=== PATIENT | female | born 1945 | race Caucasian/White ===

== ENCOUNTER 2017-03-10 17:00 | Outpatient (CLI) | payer MEDICARE | END 2017-03-10 17:01 | disposition home or self-care (01) | LOC: BICRAD 17:00 | PROVIDERS: ATTEND Internal Medicine | DX: J32.9 Chronic sinusitis, unspecified (principal); R05 Cough; J18.9 Pneumonia, unspecified organism | CPT/HCPCS: 70220; 71046 ==

== ENCOUNTER 2017-04-15 16:19 | Outpatient (CLI) | payer MEDICARE | END 2017-04-15 16:20 | disposition home or self-care (01) | LOC: BICRAD 16:19 | PROVIDERS: ATTEND Internal Medicine | DX: R05 Cough (principal) | CPT/HCPCS: 71046 ==

== ENCOUNTER 2018-02-14 14:16 | Emergency (ER) | payer MEDICARE ==
[2018-02-14 15:16] LABS: Hemoglobin 9.9 g/dL (12.0-16.0); Mean Corpuscular HGB CONC 32.9 g/dL (32.0-36.0); Mean Corpuscular Hemoglobin 27.3 pg (27.0-31.0); Mean Platelet Volume 7.7 fL (7.4-10.4); Platelet Count 143 thou/uL (130-400); RBC Distribution Width 17.6 % (11.5-14.5); Red Blood Cell (RBC) Count 3.61 mill/uL (4.20-5.40); White Blood Cell (WBC) Count 1.6 thou/uL (4.8-10.8)
[2018-02-14] MEDS ORDERED: cefTRIAXone\\ROCEPHIN 2 GM VIAL ONE (15:24)
[2018-02-14 15:25] LABS: Bilirubin Negative (Negative); Blood, Urine Negative (Negative); Clarity CLEAR (Clear); Glucose, Urine (Dipstick) Negative (Negative); Leukocyte Trace (Negative); Nitrite Negative (Negative); Protein, Urine (Dipstick) Negative (Neg-Trace); Specific Gravity, Urine 1.016 (1.002-1.036); pH, Urine 6.5 (5.0-9.0)
[2018-02-14 15:34] LABS: Bacteria/HPF None Seen HPF (None Seen); Hyaline Casts/LPF 0-3 HYALINE CAST LPF (0-3 Hyaline); Pathc Cast-AUWi Flag 0.14 (0-2.49); RBC/HPF 0-3 HPF (0-3); Squamous Epithelial 0-3 HPF (0-3); WBC/HPF None Seen HPF (0-3)
[2018-02-14 15:34] LABS: #Eosinphils 0.1 thou/uL (0.0-0.7); #Lymphocytes 0.5 thou/uL (1.20-3.40); #Monocytes 0.2 thou/uL (0.11-0.59); #Neutrophils 0.9 thou/uL (1.40-6.50); %Basophils 0.4 % (0.0-1.0); %Eosinophils 3.3 % (0.0-10.0); %Lymphocytes 30.5 % (21.0-51.0); %Monocytes 9.8 % (0.0-10.0); Anisocytosis SLIGHT = 6-15 cells (100X) (0-5/hpf); Elliptocytes SLIGHT = 2-5 cells (100X) (0-1/hpf); MDiff Complete? YES; Microcytosis SLIGHT = 6-15 cells (100X) (0-5/hpf); PLT Morphology Comment Appears Adequate
[2018-02-14 15:35] LABS: ALT (SGPT) 18 U/L (8-55); AST (SGOT) 35 U/L (5-34); Albumin 3.7 g/dL (3.4-4.8); Alkaline Phosphatase 106 U/L (40-150); Anion Gap 14 mmol/L (10-20); BUN (Urea Nitrogen) 12 mg/dL (9.8-20.1); Bilirubin, Total 0.8 mg/dL (0.2-1.2); CK (CPK) 24 U/L (29-168); Calc. Creatinine Clearance 0 mL/min (70-130); Calcium 8.9 mg/dL (7.8-10.44); Carbon Dioxide 20 mmol/L (23-31); Chloride 100 mmol/L (98-107); Estimated GFR-MDRD 73; Globulin 2.6 g/dL (2.4-3.5); Glucose 110 mg/dL (83-110); Potassium 4.2 mmol/L (3.5-5.1); Protein, Total 6.3 g/dL (6.0-8.3); Sodium 130 mmol/L (136-145)
--- NOTE | 2018-02-14 16:13 | RAD ---
PORTABLE CHEST ONE VIEW: 02/14/18 at 3:04 p.m. HISTORY: Neutropenic fever. FINDINGS: The heart size is normal. The lungs are well expanded without focal areas of consolidation, pneumotho rax or pleural effusions. There are postop changes in the left axilla. IMPRESSION: No radiographic evidence of acute cardiopulmonary process. POS: [facility]
--- NOTE | 2018-02-20 15:19 | EKG ---
Test Reason : Blood Pressure : / mmHG Vent. Rate : 112 BPM Atrial Rate : 112 BPM P-R Int : 154 ms QRS Dur : 072 ms QT Int : 320 ms P-R-T Axes : 049 025 116 degrees QTc Int : 436 ms Sinus tachycardia Possible Left atrial enlargement T wave abnormality, consider anterolateral ischemia Abnormal ECG Confirmed by EMERALD NGUYEN M.D. ([id number]), research editor JEFF MAY ([id number] on 02/20/2018 3:18:51 PM Referred By: Confirmed By:EMERALD NGUYEN M.D.
== END 2018-02-14 17:16 | disposition home or self-care (01) ==
LOC: ERS 14:16
DX: R50.9 Fever, unspecified (principal); D72.819 Decreased white blood cell count, unspecified; I10 Essential (primary) hypertension
CPT/HCPCS: 36415; 71045; 80053; 81003; 81015; 82550; 83605; 84484; 85025; 85060; 87040; 87086; 93005; 96365; 96367; J0696; J3370

== ENCOUNTER 2018-02-19 10:38 | Outpatient (CLI) | payer MEDICARE ==
--- NOTE | 2018-02-19 14:16 | PET ---
PET WITH CT SKULL TO MID THIGH: CLINICAL HISTORY: Lymphoma in a 72-year-old female. COMPARISON: Reference made to a chest, abdomen, and pelvis CT, dated 10/30/2016. RADIOPHARMACEUTICAL: Fluorine 18 FDG 12 millicuries IV with 10 mL 0.95 sodium chloride. RADIOTRACER DISTRIBUTION: There is a homogeneous radiotracer distribution. FINDINGS: There are several lymph nodes of the right axilla, as well as the superior right chest wall, located deep to the pectoralis musculature. These lymph nodes are not pathologically enlarged by size criter ia, although do reveal evidence of hypermetabolic activity with SUV measuring up to 2.5. There are f our discrete lymph nodes of this region with increased metabolic activity. There is a small hypodensity at the inferior aspect of the right hepatic lobe, which dose not reveal increased metabolic activity. There is marked enlargement of the spleen, which reveals increased met abolic activity, diffusely, with SUV maximum ranging between 4 and 5, suggestive of diffuse lymphomat ous involvement. There is no evidence of pulmonary mass or pleural effusion. There is multifocal soft tissue nodulari ty about the splenic hilum, which reveals a slight increase in metabolic activity, although is not fr ankly hypermetabolic, with an SUV of approximately 2. Hypermetabolic adenopathy of the periaortic re gion of the abdomen is present, with an SUV of 3, within a 1.2 cm lymph node. Focal increased metabo lic activity of the left pelvic sidewall is present within a small region of ill defined soft tissue nodularity, adjacent the left aspect of the sigmoid colon, which an SUV of approximately 3. This cou ld relate to a small hypermetabolic lymph node. IMPRESSION: 1. Hypermetabolic adenopathy is present, localizing to the anterior right superior chest wall, right axilla, and periaortic aspect of the abdominal retroperitoneum, as well as within the left hemipelvi s. In addition, there is indication of diffuse lymphomatous involvement of the enlarged spleen, with adjacent soft tissue nodularity, which demonstrates mild increased metabolic activity. 2. Deauville score of 4 for moderately higher uptake, relative to the hepatic parenchyma. POS: [facility]
== END 2018-02-19 10:39 | disposition home or self-care (01) ==
LOC: PET 10:38
PROVIDERS: ATTEND Internal Medicine Hematology & Oncology
DX: C85.90 Non-Hodgkin lymphoma, unspecified, unspecified site (principal); R59.0 Localized enlarged lymph nodes
CPT/HCPCS: 78815; A9552

== ENCOUNTER 2018-02-20 08:37 | Day surgery (SDC) | payer MEDICARE ==
[2018-02-19 13:21] VITALS: BMI 26.8
[~2018-02-20 08:37] MED LIST: Prevnar 13-Val Conj/PF 0.5 ML SYRINGE IM ONE
[2018-02-20 09:01] LABS: PTT 35.3 SEC (22.9-36.1); Prothrombin Time 13.1 SEC (12.0-14.7)
[2018-02-20 11:00] VITALS: BP 140/62; TEMP 97.4
--- NOTE | 2018-02-20 14:43 | CT ---
CT GUIDED BONE MARROW ASPIRATION BIOPSY OF LEFT ILIAC BONE: Date: 02-20-18 History: Pancytopenia. Technique: After informed consent was obtained, patient was placed on the CT scan table in the prone position. L imited noncontrasted CT scan was obtained through the level of the iliac bones with grid localizer in place. An area overlying the left iliac bone was marked and the area was meticulously prepped and dr aped in the usual sterile fashion. Skin and subcutaneous tissues were infiltrated with buffered 1% Lidocaine for local anesthesia. Small skin incision was made. A 10 gauge lung biopsy needle was advanced to the level of the left iliac bubba ne cortex. Three axial noncontrast CT images were obtained confirming placement of the needle. The needle was advanced just through the cortex and approximately 8 ml of bone marrow aspirate was ob tained. Utilizing co-axial technique, a 12 gauge lung biopsy needle was placed and an approximately 1 .5 cm core bone biopsy specimen was obtained. Needle was removed. Hemostatis was achieved with direct pressure. The patient tolerated the procedure well and without immediate complication. Patient was transported to radiology nurses holding area for further monitoring prior to discharge. IMPRESSION: Technically successful CT guided percutaneous bone marrow aspiration and biopsy of left iliac bone. POS: [facility]
== END 2018-02-20 11:35 | disposition home or self-care (01) ==
LOC: CT 08:37
PROVIDERS: ATTEND Internal Medicine Hematology & Oncology
PROC: 07DR3ZX Extraction of Iliac Bone Marrow, Percutaneous Approach, Diagnostic (ICD-10-PCS; principal; 2018-02-20)
DX: D61.818 Other pancytopenia (principal); Z91.040 Latex allergy status; Z91.09 Other allergy status, other than to drugs and biological substances; Z79.2 Long term (current) use of antibiotics; Z79.899 Other long term (current) drug therapy
CPT/HCPCS: 20225; 36415; 77012; 85097; 85610; 85730; 88184; 88237; 88264; 88280; 88305; 88311; 88313; 88341; 88342

== ENCOUNTER 2018-03-01 12:33 | Emergency (ER) | payer MEDICARE ==
[2018-03-01 13:00] LABS: Bilirubin Negative (Negative); Blood, Urine Negative (Negative); Clarity Clear (Clear); Glucose, Urine (Dipstick) Negative (Negative); Leukocyte Negative (Negative); Nitrite Negative (Negative); Protein, Urine (Dipstick) Negative (Neg-Trace); Specific Gravity, Urine 1.015 (1.005-1.030); Urobilinogen 0.2 mg/dL (0.2-1.0); pH, Urine 5.5 (5.0-9.0)
[2018-03-01 13:58] LABS: Anisocytosis SLIGHT = 6-15 cells (100X) (0-5/hpf); Band 8 % (5-11); Elliptocytes SLIGHT = 2-5 cells (100X) (0-1/hpf); Eosinophils 6 % (0-10); Hemoglobin 9.2 g/dL (12.0-16.0); Hypochromia SLIGHT = 6-15 cells (100X) (0-5/hpf); Lymphocytes 32 % (21-51); MDiff Complete? YES; Mean Corpuscular HGB CONC 32.4 g/dL (32.0-36.0); Mean Corpuscular Hemoglobin 26.1 pg (27.0-31.0); Mean Corpuscular Volume 80.6 fL (78.0-98.0); Mean Platelet Volume 5.9 fL (7.4-10.4); Monocytes 9 % (0-10); Neutrophil 45 % (42-75); PLT Morphology Comment Appears Adequate; Platelet Count 136 thou/uL (130-400); RBC Distribution Width 15.9 % (11.5-14.5); Red Blood Cell (RBC) Count 3.51 mill/uL (4.20-5.40); Tear Drops SLIGHT = 2-5 cells (100X) (0-1/hpf); White Blood Cell (WBC) Count 1.5 thou/uL (4.8-10.8)
[2018-03-01 14:12] LABS: ALT (SGPT) 18 U/L (8-55); AST (SGOT) 35 U/L (5-34); Albumin 3.4 g/dL (3.4-4.8); Alkaline Phosphatase 77 U/L (40-150); Anion Gap 16 mmol/L (10-20); BUN (Urea Nitrogen) 11 mg/dL (9.8-20.1); Bilirubin, Total 0.7 mg/dL (0.2-1.2); Calc. Creatinine Clearance 0 mL/min (70-130); Calcium 8.5 mg/dL (7.8-10.44); Carbon Dioxide 17 mmol/L (23-31); Chloride 101 mmol/L (98-107); Estimated GFR-MDRD 62; Globulin 2.5 g/dL (2.4-3.5); Glucose 102 mg/dL (83-110); Potassium 3.9 mmol/L (3.5-5.1); Protein, Total 5.9 g/dL (6.0-8.3); Sodium 130 mmol/L (136-145)
--- NOTE | 2018-03-01 14:38 | RAD ---
CHEST 2 VIEWS: Date: 03/01/18 HISTORY: Fever and cough. COMPARISON: Chest radiograph dated 02/14/18. FINDINGS: Lungs are clear. No pneumothorax or effusion. Cardiac silhouette and mediastinal contours within norm al limits. IMPRESSION: No acute intrathoracic abnormality. POS: [facility]
== END 2018-03-01 15:56 | disposition home or self-care (01) ==
LOC: SCSER 12:33
DX: D70.9 Neutropenia, unspecified (principal); R50.81 Fever presenting with conditions classified elsewhere; I10 Essential (primary) hypertension
CPT/HCPCS: 36415; 71046; 80053; 81003; 83605; 85025; 87040; 87086

== ENCOUNTER 2018-03-27 10:56 | Day surgery (SDC) | payer MEDICARE ==
[2018-03-27] MEDS ORDERED: diphenhydrAMINE 25 MG CAP PO SCH (11:15)
[2018-03-27] MEDS ORDERED: Acetaminophen 500 MG TAB PO SCH (11:15)
[2018-03-27 15:36] VITALS: BP 126/58; TEMP 98.5
== END 2018-03-27 15:44 | disposition home or self-care (01) ==
LOC: ONC/OP 10:56
PROVIDERS: ATTEND Internal Medicine Hematology & Oncology
PROC: 30233N1 Transfusion of Nonautologous Red Blood Cells into Peripheral Vein, Percutaneous Approach (ICD-10-PCS; principal; 2018-03-27)
DX: D64.9 Anemia, unspecified (principal); D69.6 Thrombocytopenia, unspecified; Z79.899 Other long term (current) drug therapy; Z91.040 Latex allergy status; Z88.8 Allergy status to other drugs, medicaments and biological substances
CPT/HCPCS: 36430; 86850; 86900; 86901; P9016; Q0163

== ENCOUNTER → 2018-04-27 | Day surgery (SDC) | payer MEDICARE ==
[~2018-04-27] MED LIST changes: +Acetaminophen 500 MG TAB PO SCH; -Prevnar 13-Val Conj/PF 0.5 ML SYRINGE IM ONE; +Sodium Chloride 0.9% 20 ML ONE; +diphenhydrAMINE 25 MG CAP PO SCH
== END ==
LOC: ONC/OP 12:53
PROVIDERS: ATTEND Internal Medicine Hematology & Oncology
PROC: 30233N1 Transfusion of Nonautologous Red Blood Cells into Peripheral Vein, Percutaneous Approach (ICD-10-PCS; principal; 2018-04-27)
DX: D64.9 Anemia, unspecified (principal); D69.6 Thrombocytopenia, unspecified; Z88.8 Allergy status to other drugs, medicaments and biological substances; Z91.040 Latex allergy status
CPT/HCPCS: 86850; 86870; 86900; 86901; Q0163

== ENCOUNTER 2018-04-29 12:40 | Inpatient (IN) | payer MEDICARE ==
[2018-04-29] MEDS ORDERED: Sodium Chloride 0.9% 0 ML ONE (12:48)
[2018-04-29] MEDS ORDERED: Acetaminophen 500 MG TAB PO SCH ×2 (13:00→16:45)
[2018-04-29] MEDS ORDERED: diphenhydrAMINE 25 MG CAP PO SCH (13:00)
[2018-04-29 16:10] LABS: Hemoglobin 6.7 g/dL (12.0-16.0)
[2018-04-29] MEDS ORDERED: diphenhydrAMINE 50 MG/ML VIAL ONE (16:28)
[2018-04-29] MEDS ORDERED: diphenhydrAMINE 50 MG/ML VIAL IVP SCH (16:45)
[2018-04-29] MEDS: methylPREDNISolone Sod Succ/PF 125 MG/2 ML VIAL IVP SCH (16:57)
[2018-04-29] MEDS ORDERED: Sodium Chloride 0.9% 20 ML ONE (16:59)
[2018-04-29] MEDS ORDERED: Guaifenesin DM 100-10/5 ML UDCUP PO PRN (19:28)
[2018-04-29] MEDS ORDERED: Senokot S 8.6-50 MG TAB PO PRN (19:28)
[2018-04-29] MEDS ORDERED: Acetaminophen 650 MG Suppository PR PRN (19:28)
[2018-04-29] MEDS ORDERED: Ondansetron PF 4 MG/2 ML Vial IVP PRN (19:28)
[2018-04-29] MEDS ORDERED: Promethazine 25 MG TAB PO PRN (19:35)
[2018-04-29] MEDS ORDERED: methylPREDNISolone Sod Succ/PF 125 MG/2 ML VIAL IVP SCH (19:45)
[2018-04-29] MEDS ORDERED: Lorazepam 0.5 MG TAB PO SCH (21:00)
[2018-04-29] MEDS ORDERED: methylPREDNISolone Sod Succ 40 MG VIAL IM SCH (21:15)
[2018-04-29] MEDS ORDERED: methylPREDNISolone Sod Succ/PF 125 MG/2 ML VIAL IM SCH (21:15)
[2018-04-29] MEDS: Famotidine 20 MG TAB PO SCH (21:49)
[2018-04-29] MEDS: Melatonin 3 MG TAB PO PRN (21:49)
[2018-04-29 23:52] LABS: Bilirubin Negative (Negative); Blood, Urine Negative (Negative); Clarity CLEAR (Clear); Glucose, Urine (Dipstick) Negative (Negative); Leukocyte Negative (Negative); Nitrite Negative (Negative); Protein, Urine (Dipstick) Negative (Neg-Trace); pH, Urine 6.5 (5.0-9.0)
[2018-04-29 23:54] LABS: Specific Gravity, Urine 1.004 (1.002-1.036)
--- NOTE | 2018-04-30 01:56 | HP ---
PRIMARY CARE PHYSICIAN: Disha. PRIMARY ONCOLOGIST: Mirna Pyane MD REASON FOR ADMISSION: Dizziness, confusion, and transfusion reaction. HISTORY OF PRESENT ILLNESS: This is a 73-year-old white female with a history of non-Hodgkin's lymphoma, previously treated with chemotherapy, radiation and then a stem cell transplant, had been doing well with no evidence of recurrence until January. She started to feel bad. She started having chills, fevers, was seen in the emergency room, and no infection was found, so she was sent to Dr. Payne. Dr. Payne diagnosed her with a recurrence of non-Hodgkin lymphoma. The patient was started on chemotherapy and for the last 2 weeks, has had no more of the chills episodes or fevers with confusion. In the office, the patient was noted to have a hemoglobin of 6.7, so she was scheduled for a transfusion here today. The patient has lots of antibodies in her blood that makes it difficult to do transfusion, so what they did was the least dangerous transfusion they can do, even though they were not able to completely crossmatch. The patient was able to get 1 unit and then she started to have some of the transfusion reaction. She started shaking and feeling very bad and very tachycardic to 150s. Dr. Payne was going to give her some steroids, but then her symptoms resolved with a second dose of Benadryl. The patient was doing okay and then when she got up to leave the facility, she almost fell. She had to be caught by staff. No injuries. The patient was very confused at that time and so, Dr. Payne asked that we put patient on observation until the Benadryl gets out of her system. Repeat H and H after the transfusion did show a hemoglobin of 6.7. On speaking with Dr. Payne, there is a possibility of an autoimmune hemolysis as well, so we will go ahead and give the patient a dose of steroids. PAST MEDICAL HISTORY: 1. Hypertension. 2. Hypothyroidism. 3. Non-Hodgkin's lymphoma, now with recurrence. 4. Osteoporosis. PAST SURGICAL HISTORY: 1. Cholecystectomy. 2. Right hip pinning for fracture. 3. Left wrist surgery. SOCIAL HISTORY: The patient denies tobacco, alcohol, or illicit drug use. She lives at home with her daughter. She is a . FAMILY HISTORY: Father had heart disease. Mother had breast cancer. Brother with thyroid cancer. ALLERGIES: 1. LATEX. 2. POVIDONE-IODINE. 3. SOAPS. CURRENT MEDICATIONS: 1. 0.5 mg of Ativan twice a day, especially at bedtime. 2. Melatonin 3 to 6 mg at night. 3. Losartan 25 mg daily. 4. Synthroid 50 mcg daily. 5. Zoloft 100 mg daily. REVIEW OF SYSTEMS: CONSTITUTIONAL: See HPI. EYES: No double vision or blurred vision. ENT: She has had some runny nose. No sore throat. CARDIOVASCULAR: No chest pain. No palpitations or racing heart. PULMONARY: She has had some cough for the last few days productive of clear to yellow sputum. No shortness of breath or wheezing. GASTROINTESTINAL: She has had some nonspecific periumbilical abdominal pain, crampy on and off, sometimes with bowel movements, but oftentimes even when she is not having any bowel movements. Pain has been getting worse for at least a week. She has been taking anything for it. She has had significant nausea and vomiting associated with both her cancer and the treatments. She takes Zofran and maybe some Phenergan for that at home. She also has had some diarrhea that she took loperamide earlier in the week, none currently. GENITOURINARY: No dysuria or hematuria. MUSCULOSKELETAL: She has some chronic muscle aches in her back. No other significant symptoms. SKIN: No rashes or lesions. NEUROLOGIC: No numbness, tingling, or focal weakness. PHYSICAL EXAMINATION: VITAL SIGNS: Blood pressure 133/74, pulse 93, O2 saturation 99% on room air, and temperature 98.5. GENERAL: This is a well-developed obese white female, in no acute distress. HEENT: Pupils are equal, round, and reactive to light. Oropharynx clear without lesions, erythema, or exudate. NECK: Supple. No lymphadenopathy. No thyroid nodules or enlargement. No JVD. HEART: Regular rate and rhythm. 3/6 loud holosystolic murmur. No rubs, or gallops. LUNGS: Clear to auscultation bilaterally. No wheezes, crackles, or rhonchi. ABDOMEN: Soft. Mild tenderness to palpation periumbilically. No guarding or rebound tenderness. No masses. No hepatosplenomegaly. Normoactive bowel sounds. EXTREMITIES: No clubbing, cyanosis, or edema. SKIN: No rashes or lesions noted. NEUROLOGIC: She has intact strength and sensation in all extremities. No facial droop. PSYCHIATRIC: The patient is alert and oriented to person, place, and time. She is a little bit confused about what has been happening recently. Has a hard time answering some questions and take some time on them. Her daughter is present in the room and said that this is much better than she was earlier in the day after she had got her second dose of Benadryl. LABORATORY DATA: H and H were 6.7 and 20.4. No other lab available. ASSESSMENT: 1. Shakiness and confusion, unsteadiness on feet. This is most likely secondary to two doses of Benadryl she was given to treat transfusion reaction, may be related to recurrent symptoms of her cancer since she did have fever and chills previously with her cancer before her treatments. We will put the patient in observation and watch her overnight and see if all these symptoms continue to clear if Benadryl gets out of her system. 2. Transfusion reaction with persistent anemia after 1 unit transfusion. Concern for possibility of hemolysis. We will give a dose of Solu-Medrol 125 mg IV x1 right now. I will recheck a CBC in the morning along with complete metabolic panel. If blood drops further in the morning, then it will be concerning for a possibility of a continued hemolysis and may need to transfuse further. I have discussed this plan with Dr. Payne and she will also see the patient in the morning. 3. Hypertension. Resume patient's home blood pressure medications. 4. Hypothyroidism. Resume patient's Synthroid. 5. Anxiety/depression. Resume patient's Zoloft. 6. Gastrointestinal prophylaxis. Put the patient on Pepcid twice a day. 7. Stomach pain. We will get a CMP in the morning and the patient will either get her PET scan tomorrow or CT if she is unable to make it to the PET scan. 8. Code status. I did discuss with the patient, she was not quite certain but for now, wants to be a full code. Should she be incapacitated, her daughter present in the room will be her medical decision maker, her name is Maricruz Hubbard. Job ID: [id number] [facility]
[2018-04-30 02:22] VITALS: BMI 24.7
[2018-04-30] MEDS: methylPREDNISolone Sod Succ/PF 125 MG/2 ML VIAL IVP SCH (03:17)
[2018-04-30 05:04] LABS: ALT (SGPT) 11 U/L (8-55); AST (SGOT) 34 U/L (5-34); Albumin 2.5 g/dL (3.4-4.8); Alkaline Phosphatase 89 U/L (40-150); Anion Gap 11 mmol/L (10-20); BUN (Urea Nitrogen) 14 mg/dL (9.8-20.1); Bilirubin, Total 1.3 mg/dL (0.2-1.2); Calc. Creatinine Clearance 89 mL/min (70-130); Calcium 8.2 mg/dL (7.8-10.44); Carbon Dioxide 27 mmol/L (23-31); Chloride 101 mmol/L (98-107); Estimated GFR-MDRD Greater than 90; Glucose 130 mg/dL (83-110); Potassium 3.4 mmol/L (3.5-5.1); Protein, Total 4.5 g/dL (6.0-8.3); Sodium 136 mmol/L (136-145)
[2018-04-30 05:11] LABS: Band 4 % (5-11); Eosinophils 3 % (0-10); Hemoglobin 6.3 g/dL (12.0-16.0); Lymphocytes 21 % (21-51); MDiff Complete? YES; Mean Corpuscular Hemoglobin 29.8 pg (27.0-31.0); Mean Corpuscular Volume 90.3 fL (78.0-98.0); Mean Platelet Volume 7.2 fL (7.4-10.4); Monocytes 7 % (0-10); Neutrophil 65 % (42-75); Platelet Count 113 thou/uL (130-400); Platelet Morphology Comment Appears Decreased; RBC Distribution Width 19.7 % (11.5-14.5); Red Blood Cell (RBC) Count 2.12 mill/uL (4.20-5.40); White Blood Cell (WBC) Count 1.4 thou/uL (4.8-10.8)
[2018-04-30] MEDS: Levothyroxine Sodium 50 MCG TAB PO SCH (07:03)
--- NOTE | 2018-04-30 08:02 | PDOC.PN ---
- Subjective Encounter Start Date: 04/30/18 Encounter Start Time: 10:40 Subjective: Patient with persistent diarrhea just like at home. Dizziness resolved. -: Still a little confused on and off but not like yesterday. Just got CT -: scan. - Objective Resuscitation Status - Order Detail: 04/29/18 19:28 Resuscitation Status Routine Resuscitation Status: FULL: Full Resuscitation Discussed with: Patient MAR Reviewed: Yes Vital Signs & Weight: Vital Signs (12 hours) Temp Pulse Resp BP BP Pulse Ox 04/30/18 04:00 98.2 F 100 16 114/54 L 99 04/30/18 00:30 98.2 F 100 16 108/53 L 96 04/30/18 00:05 98.3 F 82 16 108/62 97 Weight Admit Weight 153 lb 9.607 oz Weight 153 lb 9.6 oz I&O: 04/29/18 04/30/18 05/01/18 06:59 06:59 06:59 Intake Total 1630 Output Total 150 Balance 1480 Result Diagrams: 04/30/18 04:28 04/30/18 04:28 Phys Exam - Physical Examination Constitutional: NAD HEENT: moist MMs Respiratory: no wheezing, no rales, no rhonchi Cardiovascular: RRR, no significant murmur Gastrointestinal: soft, positive bowel sounds diffuse moderate TTP Neurological: non-focal, moves all 4 limbs Psychiatric: normal affect, A&O x 3 Dx/Plan (1) Anemia Code(s): D64.9 - ANEMIA, UNSPECIFIED Status: Acute (2) Transfusion reaction Code(s): T80.92XA - UNSPECIFIED TRANSFUSION REACTION, INITIAL ENCOUNTER Status : Acute (3) Shakiness Code(s): R25.1 - TREMOR, UNSPECIFIED Status: Acute (4) Acute metabolic encephalopathy Code(s): G93.41 - METABOLIC ENCEPHALOPATHY Status: Acute (5) Hypertension Code(s): I10 - ESSENTIAL (PRIMARY) HYPERTENSION Status: Chronic (6) Hypothyroidism Code(s): E03.9 - HYPOTHYROIDISM, UNSPECIFIED Status: Chronic (7) Diarrhea Code(s): R19.7 - DIARRHEA, UNSPECIFIED Status: Acute Comment: likely due to chemotherapy, will check C. diff just in case, giving loperamide - Plan cont current plan of care Dr. Payne to decide on need for further transfusions and imaging -: Possible hospice * . - Discharge Day Encounter end time: 10:50
[2018-04-30] MEDS: Famotidine 20 MG TAB PO SCH ×2 (09:16→20:21)
[2018-04-30] MEDS: Losartan 25 MG TAB PO SCH (09:16)
[2018-04-30] MEDS ORDERED: Iopamidol 370 76% 100 ML VIAL ONE (09:48)
[2018-04-30] MEDS ORDERED: Lorazepam 0.5 MG TAB PO SCH ×3 (10:15→21:00)
[2018-04-30] MEDS: Loperamide HCl 2 MG CAP PO PRN ×2 (10:45→14:51)
--- NOTE | 2018-04-30 12:35 | CT ---
CT CHEST WITH CONTRAST CT ABDOMEN WITH CONTRAST CT PELVIS WITH CONTRAST: HISTORY: Restaging T-cell lymphoma. COMPARISON: PET CT of 02/19/2018. FINDINGS: Lungs are clear. No pneumothorax. No effusion. No suspicious pulmonary nodule. A right retropectoral lymph node, which is deemed SCTF on the prior head PET examination measures 6 m m in short axis, unchanged. A maxillary lymph node which was also deemed FDG avid on the prior PET C T examination measures 4 mm in short axis, unchanged. The spleen measures 12.6 cm in length, unchang ed. No new mediastinal, hilar, axillary, internal mammary, nor retropectoral or supraclavicular adenopath y is appreciated. Hepatic cysts are present, unchanged. There is extensive diverticular disease of the sigmoid colon with submucosal edema throughout the sig moid colon and descending colon with moderate stool burden suggesting colitis. This may be treatment related. There is also submucosal edema and thickening throughout the transverse and ascending colo n and cecum. There is presacral fluid. There is trace free fluid in the pelvis. No abnormal hepatic enhancing mass. There is reservoir effect of the extrahepatic and intrahepatic b iliary system, similar. The aortoiliac contour is similar. Anterior periaortic lymph node, which wa s previous deemed FDG avid, measures 7 mm in short axis, unchanged. No new retroperitoneal adenopath y. No suspicious osteolytic or osteoblastic lesions. IMPRESSION: 1. Size unchanged hypermetabolic lymph nodes and spleen from the comparison PET CT examination. 2. No new adenopathy. 3. Diffuse colonic submucosal edema and thickening suggesting pancolitis may be treatment related. POS: [facility]
--- NOTE | 2018-04-30 12:38 | CON ---
DATE OF CONSULTATION: REASON FOR CONSULT: T-cell lymphoma. HISTORY OF PRESENT ILLNESS: Ms. 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 She has progressive pancytopenia, lymphadenopathy, and splenomegaly. She has undergone two cycles of treatment with Romidepsin. She has had night sweats, fever, and chills since diagnosis in late January. The fever was felt to be tumor related. She had a blood transfusion yesterday. Shortly after transfusion, she began to have the shaking and chills. No fever. She did receive Benadryl with resolution of symptoms, but unfortunately, she became dizzy and sleepy, and was admitted overnight for observation. The patient's hemoglobin did not improve with blood transfusion in fact dropped up slightly to 6.3. Hemolysis workup is underway. She did have antibodies prior to transfusion. The patient complains of diarrhea this morning. She has had five loose stools. She has anxiety. She denies any chest pain or shortness of breath. No abdominal discomfort. No fever, chills, or night sweats. PAST MEDICAL HISTORY: 1. Relapsed T-cell lymphoma. 2. Tumor fever, night sweats, and chills. 3. Anxiety. 4. Esophageal reflex. 5. Hypothyroidism. 6. Insomnia. 7. Shingles. PAST SURGICAL HISTORY: 1. Cholecystectomy. 2. Right hip pinning. 3. Wrist surgery. ALLERGIES: TO LATEX, IODINE, AND SOAPS. CURRENT MEDICATIONS: 1. Levothyroxine 50 mcg daily. 2. Lorazepam b.i.d. 3. Losartan 25 mg daily. 4. Vitamin B daily. 5. Zoloft 100 mg daily. FAMILY HISTORY: Noncontributory. SOCIAL HISTORY: , has 3 children. Lives with a daughter. No alcohol, tobacco, or illicit drug use. REVIEW OF SYSTEMS: A 10-point review of systems is negative except for noted in the HPI. PHYSICAL EXAMINATION: VITAL SIGNS: Temperature is 97.3, pulse is 105, respiratory rate 18, BP is 132/63. She is 99% on room air. GENERAL: This is a chronically ill-appearing female, in no acute distress. HEENT: Normocephalic atraumatic. Pupils equal and reactive to light. NECK: Supple. CV: Regular rate and rhythm. She does have a 2/6 murmur. LUNGS: Clear to auscultation. ABDOMEN: Soft, nontender. Bowel sounds are positive. EXTREMITIES: No clubbing, cyanosis, or edema. SKIN: No rash. HEMATOLOGICAL: No petechiae or purpura. NEUROLOGICAL: Nonfocal. PSYCH: The patient is anxious and tearful. PERTINENT LABS AND X-RAYS: Current WBCs 1.4, hemoglobin 6.3, hematocrit 19.1, platelet count is 113,000. Sodium is 136, potassium 3.4, chloride is 101, CO2 is 27, BUN is 14, creatinine 0.62, calcium 8.2, bilirubin is 1.3, AST is 34, ALT is 11, alkaline phosphatase is 89. Serum total protein is 4.5, albumin 2.5, globulin 2. Urine is negative for bacteria. ASSESSMENT: 1. T-cell lymphoma. 2. Severe anemia with possible transfusion reaction versus hemolysis. 3. Diarrhea. 4. Anxiety. DISCUSSION: We will add Lomotil and Imodium for patient's diarrhea. She was due for a PET scan today, but will be re-staged instead with a CT scan. We will start IV fluids after the CT scan. She remains on steroids for hemolysis versus transfusion reaction and we will monitor her CBC closely. We briefly discussed palliative care and hospice should CT scan show poor response to treatment. Thank you for the consult. We will follow her closely. Job ID: [id number]
[2018-04-30 15:41] LABS: Hemoglobin 6.5 g/dL (12.0-16.0); Mean Corpuscular HGB CONC 33.4 g/dL (32.0-36.0); Mean Corpuscular Hemoglobin 30.3 pg (27.0-31.0); Mean Corpuscular Volume 90.9 fL (78.0-98.0); Mean Platelet Volume 7.6 fL (7.4-10.4); Platelet Count 139 thou/uL (130-400); Red Blood Cell (RBC) Count 2.14 mill/uL (4.20-5.40); White Blood Cell (WBC) Count 1.4 thou/uL (4.8-10.8)
[2018-04-30 15:52] LABS: Bilirubin, Total 1.2 mg/dL (0.2-1.2)
[2018-04-30 16:05] LABS: Anisocytosis MODERATE=16-30 cells (100X) (0-5/hpf); Band 4 % (5-11); Eosinophils 2 % (0-10); Lymphocytes 35 % (21-51); MDiff Complete? YES; Monocytes 5 % (0-10); Neutrophil 52 % (42-75); Nucleated RBC 1 % (0); Ovalocytes SLIGHT = 2-5 cells (100X) (0-1/hpf); Platelet Morphology Comment Appears Adequate; Polychromasia MODERATE = 3-4 cells (100X) (0-2/hpf); Reactive Lymphocytes 2 % (0-10); Tear Drops SLIGHT = 2-5 cells (100X) (0-1/hpf)
[2018-04-30] MEDS: Melatonin 3 MG TAB PO PRN (18:28)
[2018-04-30] MEDS: Diphenoxylate HCl/Atropine Tablet PO PRN (18:28)
[2018-05-01] MEDS: Levothyroxine Sodium 50 MCG TAB PO SCH (07:18)
[2018-05-01] MEDS ORDERED: diphenhydrAMINE 50 MG/ML VIAL IVP SCH (08:00)
[2018-05-01] MEDS ORDERED: Dexamethasone 10 MG/ML VIAL SLOW IVP SCH (08:00)
[2018-05-01] MEDS ORDERED: Acetaminophen 500 MG TAB PO SCH (08:00)
[2018-05-01] MEDS: Losartan 25 MG TAB PO SCH (08:20)
[2018-05-01] MEDS: Famotidine 20 MG TAB PO SCH ×2 (08:20→20:30)
[2018-05-01] MEDS: Ondansetron ODT 4 MG TAB PO PRN (09:59)
--- NOTE | 2018-05-01 12:24 | PDOC.PN ---
- Subjective Encounter Start Date: 05/01/18 Encounter Start Time: 09:30 -: old records requested/rev Patient seen and examined. No new complaints. No overnight events - Objective Resuscitation Status - Order Detail: 04/30/18 17:29 Resuscitation Status Routine Resuscitation Status: DNAR: NO Resuscitation Discussed with: patient YOAN Reviewed: Yes Vital Signs & Weight: Vital Signs (12 hours) Temp Pulse Resp BP Pulse Ox 05/01/18 10:44 96 05/01/18 10:41 98.2 F 105 H 24 H 117/56 L Weight Admit Weight 153 lb 9.6 oz Weight 153 lb 9.6 oz I&O: 04/30/18 05/01/18 05/02/18 06:59 06:59 06:59 Intake Total 1630 960 0 Output Total 150 Balance 1480 960 0 Result Diagrams: 04/30/18 14:53 04/30/18 04:28 Phys Exam - Physical Examination Constitutional: NAD HEENT: PERRLA, sclera anicteric Neck: no JVD, supple Respiratory: no wheezing, no rales, no rhonchi Cardiovascular: RRR, no significant murmur, no rub Gastrointestinal: soft, non-tender, no distention, positive bowel sounds Musculoskeletal: no edema, pulses present Neurological: non-focal, normal sensation Lymphatic: no nodes Psychiatric: normal affect Skin: no rash, normal turgor Dx/Plan (1) Acute metabolic encephalopathy Code(s): G93.41 - METABOLIC ENCEPHALOPATHY Status: Acute (2) Anemia Code(s): D64.9 - ANEMIA, UNSPECIFIED Status: Acute (3) Diarrhea Code(s): R19.7 - DIARRHEA, UNSPECIFIED Status: Acute Comment: likely due to chemotherapy, will check C. diff just in case, giving loperamide (4) Pancolitis Code(s): K51.00 - ULCERATIVE (CHRONIC) PANCOLITIS WITHOUT COMPLICATIONS Status : Acute (5) T-cell lymphoma Code(s): C85.90 - NON-HODGKIN LYMPHOMA, UNSPECIFIED, UNSPECIFIED SITE Status: Acute (6) Transfusion reaction Code(s): T80.92XA - UNSPECIFIED TRANSFUSION REACTION, INITIAL ENCOUNTER Status : Acute (7) Hypertension Code(s): I10 - ESSENTIAL (PRIMARY) HYPERTENSION Status: Chronic (8) Hypothyroidism Code(s): E03.9 - HYPOTHYROIDISM, UNSPECIFIED Status: Chronic - Plan cont current plan of care * medication reviewed as below * symptomatic treatment * transfuse 1 unit PRBC * palliative care consulted * hospice eventually. Review of Systems - Review of Systems Other: not reliable as pt is confused today - Medications/Allergies Allergies/Adverse Reactions: Allergies Allergy/AdvReac Type Severity Reaction Status Date / Time latex AdvReac Mild Rash Verified 04/30/18 01:14 povidone-iodine AdvReac Mild Rash Verified 04/30/18 01:14 [From Betadine] soap [From Betadine] AdvReac Mild Rash Verified 04/30/18 01:14 Medications: Current Medications Acetaminophen (Tylenol) 650 mg PO Q4H PRN PRN Reason: Headache/Fever/Mild Pain (1-3) Acetaminophen (Tylenol) 650 mg OR Q4H PRN PRN Reason: Headache/Fever/Mild Pain (1-3) Diphenoxylate HCl/Atropine (Lomotil) 1 tab PO Q6H PRN PRN Reason: Diarrhea/Loose Stools Last Admin: 04/30/18 18:28 Dose: 1 tab Famotidine (Pepcid) 20 mg PO BID [facility] Last Admin: 05/01/18 08:20 Dose: 20 mg Guaifenesin/Dextromethorphan (Robitussin Dm) 15 ml PO Q4H PRN PRN Reason: Cough Levothyroxine Sodium (Synthroid) 50 mcg PO 0600 [facility] Last Admin: 05/01/18 07:18 Dose: 50 mcg Loperamide HCl (Imodium) 2 mg PO PRN PRN PRN Reason: Diarrhea/Loose Stools Last Admin: 04/30/18 14:51 Dose: 2 mg Lorazepam (Ativan) 0.5 mg PO BID [facility] Losartan Potassium (Cozaar) 25 mg PO DAILY [facility] Last Admin: 05/01/18 08:20 Dose: 25 mg Melatonin (Melatonin) 3 mg PO HS PRN PRN Reason: Insomnia Last Admin: 04/30/18 18:28 Dose: 3 mg Ondansetron HCl (Zofran Odt) 4 mg PO Q6H PRN PRN Reason: Nausea/Vomiting Last Admin: 05/01/18 09:59 Dose: 4 mg Ondansetron HCl (Zofran) 4 mg IVP Q6H PRN PRN Reason: Nausea/Vomiting Promethazine HCl (Phenergan) 25 mg PO Q6H PRN PRN Reason: Nausea/Vomiting Senna/Docusate Sodium (Senokot S) 2 tab PO BID PRN PRN Reason: Constipation Sertraline HCl (Zoloft) 100 mg PO DAILY [facility] Last Admin: 05/01/18 08:20 Dose: 100 mg
[2018-05-01] MEDS: Lorazepam 0.5 MG TAB PO SCH ×2 (15:32→20:30)
[2018-05-01 16:20] LABS: Hemoglobin 8.1 g/dL (12.0-16.0); Mean Corpuscular HGB CONC 33.2 g/dL (32.0-36.0); Mean Corpuscular Hemoglobin 29.8 pg (27.0-31.0); Mean Corpuscular Volume 89.7 fL (78.0-98.0); Mean Platelet Volume 7.7 fL (7.4-10.4); Platelet Count 124 thou/uL (130-400); RBC Distribution Width 19.1 % (11.5-14.5); Red Blood Cell (RBC) Count 2.74 mill/uL (4.20-5.40); White Blood Cell (WBC) Count 1.3 thou/uL (4.8-10.8)
[2018-05-01 16:29] LABS: ALT (SGPT) 18 U/L (8-55); AST (SGOT) 51 U/L (5-34); Albumin 2.8 g/dL (3.4-4.8); Alkaline Phosphatase 105 U/L (40-150); Anion Gap 13 mmol/L (10-20); BUN (Urea Nitrogen) 12 mg/dL (9.8-20.1); Bilirubin, Total 3.9 mg/dL (0.2-1.2); Calc. Creatinine Clearance 90 mL/min (70-130); Calcium 8.1 mg/dL (7.8-10.44); Carbon Dioxide 23 mmol/L (23-31); Chloride 100 mmol/L (98-107); Estimated GFR-MDRD Greater than 90; Globulin 2.3 g/dL (2.4-3.5); Glucose 221 mg/dL (83-110); Potassium 3.7 mmol/L (3.5-5.1); Protein, Total 5.1 g/dL (6.0-8.3); Sodium 132 mmol/L (136-145)
[2018-05-01 16:40] LABS: Anisocytosis MODERATE=16-30 cells (100X) (0-5/hpf); Band 7 % (5-11); Lymphocytes 16 % (21-51); MDiff Complete? YES; Monocytes 3 % (0-10); Neutrophil 70 % (42-75); Nucleated RBC 1 % (0); Ovalocytes SLIGHT = 2-5 cells (100X) (0-1/hpf); Platelet Morphology Comment Appears Decreased; Polychromasia MODERATE = 3-4 cells (100X) (0-2/hpf); Reactive Lymphocytes 4 % (0-10)
[2018-05-01] MEDS: Melatonin 3 MG TAB PO PRN (20:29)
[2018-05-02] MEDS: Acetaminophen 325 MG TAB PO PRN ×3 (04:57→21:22)
[2018-05-02] MEDS: Levothyroxine Sodium 50 MCG TAB PO SCH (04:57)
[2018-05-02] MEDS: Famotidine 20 MG TAB PO SCH ×2 (08:58→21:19)
[2018-05-02] MEDS: Losartan 25 MG TAB PO SCH (08:59)
--- NOTE | 2018-05-02 09:49 | PDOC.PN ---
- Subjective Encounter Start Date: 05/02/18 Encounter Start Time: 07:10 pt tolerated blood transfusion well, still confused and fall risk, not safe to go home, family wants her to go to rehab - Objective Resuscitation Status - Order Detail: 04/30/18 17:29 Resuscitation Status Routine Resuscitation Status: DNAR: NO Resuscitation Discussed with: patient YOAN Reviewed: Yes Vital Signs & Weight: Vital Signs (12 hours) Temp Pulse Resp BP BP BP Pulse Ox 05/02/18 08:00 97.5 F L 98 18 109/56 L 142/62 H 132/63 98 Weight Admit Weight 153 lb 9.6 oz Weight 153 lb 9.6 oz I&O: 05/01/18 05/02/18 05/03/18 06:59 06:59 07:59 Intake Total 960 1830 Balance 960 1830 Result Diagrams: 05/01/18 15:57 05/01/18 15:57 Phys Exam - Physical Examination Constitutional: NAD HEENT: PERRLA, moist MMs, sclera anicteric Neck: no JVD, supple Respiratory: no wheezing, no rales, no rhonchi Cardiovascular: RRR, no significant murmur, no rub Gastrointestinal: soft, non-tender, no distention, positive bowel sounds Musculoskeletal: no edema, pulses present Neurological: non-focal, normal sensation Lymphatic: no nodes Psychiatric: normal affect Skin: no rash, normal turgor Dx/Plan (1) Acute metabolic encephalopathy Code(s): G93.41 - METABOLIC ENCEPHALOPATHY Status: Acute (2) Anemia Code(s): D64.9 - ANEMIA, UNSPECIFIED Status: Acute (3) Diarrhea Code(s): R19.7 - DIARRHEA, UNSPECIFIED Status: Acute Comment: likely due to chemotherapy, will check C. diff just in case, giving loperamide (4) Pancolitis Code(s): K51.00 - ULCERATIVE (CHRONIC) PANCOLITIS WITHOUT COMPLICATIONS Status : Acute (5) T-cell lymphoma Code(s): C85.90 - NON-HODGKIN LYMPHOMA, UNSPECIFIED, UNSPECIFIED SITE Status: Acute (6) Transfusion reaction Code(s): T80.92XA - UNSPECIFIED TRANSFUSION REACTION, INITIAL ENCOUNTER Status : Acute (7) Hypertension Code(s): I10 - ESSENTIAL (PRIMARY) HYPERTENSION Status: Chronic (8) Hypothyroidism Code(s): E03.9 - HYPOTHYROIDISM, UNSPECIFIED Status: Chronic - Plan cont current plan of care, PT/OT, healthcare social worker * evaluate for inpt rehab * medication reviewed as below * symptomatic treatment * overall stable medically. * repeat labs tomorrow Review of Systems - Review of Systems ENT: negative: Ear Pain, Ear Discharge, Nose Pain, Nose Discharge, Nose Congestion, Mouth Pain, Mouth Swelling, Throat Pain, Throat Swelling, Other Respiratory: negative: Cough, Dry, Shortness of Breath, Hemoptysis, SOB with Excertion, Pleuritic Pain, Sputum, Wheezing Cardiovascular: negative: chest pain, palpitations, orthopnea, paroxysmal nocturnal dyspnea, edema, light headedness, other Gastrointestinal: negative: Nausea, Vomiting, Abdominal Pain, Diarrhea, Constipation, Melena, Hematochezia, Other Genitourinary: negative: Dysuria, Frequency, Incontinence, Hematuria, Retention , Other Musculoskeletal: negative: Neck Pain, Shoulder Pain, Arm Pain, Back Pain, Hand Pain, Leg Pain, Foot Pain, Other Neurological: Confusion. negative: Weakness, Numbness, Incoordination, Change in Speech, Seizures, Other - Medications/Allergies Allergies/Adverse Reactions: Allergies Allergy/AdvReac Type Severity Reaction Status Date / Time latex AdvReac Mild Rash Verified 04/30/18 01:14 povidone-iodine AdvReac Mild Rash Verified 04/30/18 01:14 [From Betadine] soap [From Betadine] AdvReac Mild Rash Verified 04/30/18 01:14 Medications: Current Medications Acetaminophen (Tylenol) 650 mg PO Q4H PRN PRN Reason: Headache/Fever/Mild Pain (1-3) Last Admin: 05/02/18 04:57 Dose: 650 mg Acetaminophen (Tylenol) 650 mg ID Q4H PRN PRN Reason: Headache/Fever/Mild Pain (1-3) Diphenoxylate HCl/Atropine (Lomotil) 1 tab PO Q6H PRN PRN Reason: Diarrhea/Loose Stools Last Admin: 04/30/18 18:28 Dose: 1 tab Famotidine (Pepcid) 20 mg PO BID [facility] Last Admin: 05/02/18 08:58 Dose: 20 mg Guaifenesin/Dextromethorphan (Robitussin Dm) 15 ml PO Q4H PRN PRN Reason: Cough Levothyroxine Sodium (Synthroid) 50 mcg PO 0600 [facility] Last Admin: 05/02/18 04:57 Dose: 50 mcg Loperamide HCl (Imodium) 2 mg PO PRN PRN PRN Reason: Diarrhea/Loose Stools Last Admin: 04/30/18 14:51 Dose: 2 mg Lorazepam (Ativan) 0.5 mg PO BID [facility] Last Admin: 05/01/18 20:30 Dose: 0.5 mg Losartan Potassium (Cozaar) 25 mg PO DAILY [facility] Last Admin: 05/02/18 08:59 Dose: 25 mg Melatonin (Melatonin) 3 mg PO HS PRN PRN Reason: Insomnia Last Admin: 05/01/18 20:29 Dose: 3 mg Ondansetron HCl (Zofran Odt) 4 mg PO Q6H PRN PRN Reason: Nausea/Vomiting Last Admin: 05/01/18 09:59 Dose: 4 mg Ondansetron HCl (Zofran) 4 mg IVP Q6H PRN PRN Reason: Nausea/Vomiting Promethazine HCl (Phenergan) 25 mg PO Q6H PRN PRN Reason: Nausea/Vomiting Senna/Docusate Sodium (Senokot S) 2 tab PO BID PRN PRN Reason: Constipation Sertraline HCl (Zoloft) 100 mg PO DAILY [facility] Last Admin: 05/02/18 08:59 Dose: 100 mg
[2018-05-02] MEDS: Ondansetron ODT 4 MG TAB PO PRN ×2 (14:10→21:22)
[2018-05-02] MEDS: Lorazepam 0.5 MG TAB PO SCH ×2 (16:49→21:19)
[2018-05-03 04:41] LABS: Hemoglobin 7.4 g/dL (12.0-16.0); Mean Corpuscular HGB CONC 31.9 g/dL (32.0-36.0); Mean Corpuscular Hemoglobin 29.6 pg (27.0-31.0); Mean Corpuscular Volume 92.7 fL (78.0-98.0); Mean Platelet Volume 8.2 fL (7.4-10.4); Platelet Count 116 thou/uL (130-400); RBC Distribution Width 19.5 % (11.5-14.5); Red Blood Cell (RBC) Count 2.49 mill/uL (4.20-5.40); White Blood Cell (WBC) Count 0.9 thou/uL (4.8-10.8)
[2018-05-03 04:58] LABS: ALT (SGPT) 20 U/L (8-55); AST (SGOT) 40 U/L (5-34); Albumin 2.6 g/dL (3.4-4.8); Alkaline Phosphatase 87 U/L (40-150); Anion Gap 11 mmol/L (10-20); BUN (Urea Nitrogen) 8 mg/dL (9.8-20.1); Bilirubin, Total 1.3 mg/dL (0.2-1.2); Calc. Creatinine Clearance 92 mL/min (70-130); Calcium 8.1 mg/dL (7.8-10.44); Carbon Dioxide 26 mmol/L (23-31); Chloride 102 mmol/L (98-107); Estimated GFR-MDRD Greater than 90; Glucose 104 mg/dL (83-110); Potassium 3.9 mmol/L (3.5-5.1); Protein, Total 4.6 g/dL (6.0-8.3); Sodium 135 mmol/L (136-145)
[2018-05-03 05:09] LABS: Band 4 % (5-11); Elliptocytes SLIGHT = 2-5 cells (100X) (0-1/hpf); Eosinophils 16 % (0-10); Hypochromia SLIGHT = 6-15 cells (100X) (0-5/hpf); Lymphocytes 36 % (21-51); MDiff Complete? YES; Monocytes 12 % (0-10); Neutrophil 32 % (42-75); Platelet Morphology Comment Appears Decreased
[2018-05-03] MEDS: Levothyroxine Sodium 50 MCG TAB PO SCH (05:28)
[2018-05-03] MEDS: Famotidine 20 MG TAB PO SCH ×2 (07:50→21:32)
[2018-05-03] MEDS: Ondansetron ODT 4 MG TAB PO PRN (07:51)
[2018-05-03] MEDS: Lorazepam 0.5 MG TAB PO SCH ×2 (07:51→21:33)
[2018-05-03] MEDS: Acetaminophen 325 MG TAB PO PRN ×2 (07:51→18:29)
[2018-05-03] MEDS: Losartan 25 MG TAB PO SCH (07:51)
--- NOTE | 2018-05-03 09:34 | PDOC.PN ---
- Subjective Encounter Start Date: 05/03/18 Encounter Start Time: 07:10 pt has now neutropenia, she is weak, no fever - Objective Resuscitation Status - Order Detail: 04/30/18 17:29 Resuscitation Status Routine Resuscitation Status: DNAR: NO Resuscitation Discussed with: patient YOAN Reviewed: Yes Vital Signs & Weight: Vital Signs (12 hours) Temp Pulse Resp BP BP BP Pulse Ox 05/03/18 08:00 97.9 F 97 16 135/62 142/66 H 137/64 98 Weight Admit Weight 153 lb 9.6 oz Weight 153 lb 9.6 oz I&O: 05/02/18 05/03/18 05/04/18 05:59 06:59 06:59 Intake Total Balance Result Diagrams: 05/03/18 04:25 05/03/18 04:25 Phys Exam - Physical Examination Constitutional: NAD HEENT: PERRLA, moist MMs, sclera anicteric Neck: no JVD, supple Respiratory: no wheezing, no rales, no rhonchi Cardiovascular: RRR, no significant murmur, no rub Gastrointestinal: soft, non-tender, no distention, positive bowel sounds Musculoskeletal: no edema, pulses present Neurological: non-focal, normal sensation Lymphatic: no nodes Psychiatric: normal affect Skin: no rash, normal turgor Dx/Plan (1) Acute metabolic encephalopathy Code(s): G93.41 - METABOLIC ENCEPHALOPATHY Status: Acute (2) Anemia Code(s): D64.9 - ANEMIA, UNSPECIFIED Status: Acute (3) Diarrhea Code(s): R19.7 - DIARRHEA, UNSPECIFIED Status: Acute Comment: likely due to chemotherapy, will check C. diff just in case, giving loperamide (4) Pancolitis Code(s): K51.00 - ULCERATIVE (CHRONIC) PANCOLITIS WITHOUT COMPLICATIONS Status : Acute (5) T-cell lymphoma Code(s): C85.90 - NON-HODGKIN LYMPHOMA, UNSPECIFIED, UNSPECIFIED SITE Status: Acute (6) Transfusion reaction Code(s): T80.92XA - UNSPECIFIED TRANSFUSION REACTION, INITIAL ENCOUNTER Status : Acute (7) Hypertension Code(s): I10 - ESSENTIAL (PRIMARY) HYPERTENSION Status: Chronic (8) Hypothyroidism Code(s): E03.9 - HYPOTHYROIDISM, UNSPECIFIED Status: Chronic (9) Pancytopenia Code(s): D61.818 - OTHER PANCYTOPENIA Status: Acute - Plan cont current plan of care, psych social worker * based on my assessment, she will need placement on discharge * social work on case to find placement based on family decision * her prognosis is poor * hospice may need to arrange at facility for comfort care if possible * medication reviewed as below * symptomatic treatment * repeat labs tomorrow. Review of Systems - Review of Systems ENT: negative: Ear Pain, Ear Discharge, Nose Pain, Nose Discharge, Nose Congestion, Mouth Pain, Mouth Swelling, Throat Pain, Throat Swelling, Other Respiratory: negative: Cough, Dry, Shortness of Breath, Hemoptysis, SOB with Excertion, Pleuritic Pain, Sputum, Wheezing Cardiovascular: negative: chest pain, palpitations, orthopnea, paroxysmal nocturnal dyspnea, edema, light headedness, other Gastrointestinal: negative: Nausea, Vomiting, Abdominal Pain, Diarrhea, Constipation, Melena, Hematochezia, Other Genitourinary: negative: Dysuria, Frequency, Incontinence, Hematuria, Retention , Other Musculoskeletal: negative: Neck Pain, Shoulder Pain, Arm Pain, Back Pain, Hand Pain, Leg Pain, Foot Pain, Other - Medications/Allergies Allergies/Adverse Reactions: Allergies Allergy/AdvReac Type Severity Reaction Status Date / Time latex AdvReac Mild Rash Verified 04/30/18 01:14 povidone-iodine AdvReac Mild Rash Verified 04/30/18 01:14 [From Betadine] soap [From Betadine] AdvReac Mild Rash Verified 04/30/18 01:14 Medications: Current Medications Acetaminophen (Tylenol) 650 mg PO Q4H PRN PRN Reason: Headache/Fever/Mild Pain (1-3) Last Admin: 05/03/18 07:51 Dose: 650 mg Acetaminophen (Tylenol) 650 mg [place] Q4H PRN PRN Reason: Headache/Fever/Mild Pain (1-3) Diphenoxylate HCl/Atropine (Lomotil) 1 tab PO Q6H PRN PRN Reason: Diarrhea/Loose Stools Last Admin: 04/30/18 18:28 Dose: 1 tab Famotidine (Pepcid) 20 mg PO BID [facility] Last Admin: 05/03/18 07:50 Dose: 20 mg Guaifenesin/Dextromethorphan (Robitussin Dm) 15 ml PO Q4H PRN PRN Reason: Cough Levothyroxine Sodium (Synthroid) 50 mcg PO 0600 [facility] Last Admin: 05/03/18 05:28 Dose: 50 mcg Loperamide HCl (Imodium) 2 mg PO PRN PRN PRN Reason: Diarrhea/Loose Stools Last Admin: 04/30/18 14:51 Dose: 2 mg Lorazepam (Ativan) 0.5 mg PO BID [facility] Last Admin: 05/03/18 07:51 Dose: 0.5 mg Losartan Potassium (Cozaar) 25 mg PO DAILY [facility] Last Admin: 05/03/18 07:51 Dose: 25 mg Melatonin (Melatonin) 3 mg PO HS PRN PRN Reason: Insomnia Last Admin: 05/01/18 20:29 Dose: 3 mg Ondansetron HCl (Zofran Odt) 4 mg PO Q6H PRN PRN Reason: Nausea/Vomiting Last Admin: 05/03/18 07:51 Dose: 4 mg Ondansetron HCl (Zofran) 4 mg IVP Q6H PRN PRN Reason: Nausea/Vomiting Promethazine HCl (Phenergan) 25 mg PO Q6H PRN PRN Reason: Nausea/Vomiting Senna/Docusate Sodium (Senokot S) 2 tab PO BID PRN PRN Reason: Constipation Sertraline HCl (Zoloft) 100 mg PO DAILY [facility] Last Admin: 05/03/18 07:51 Dose: 100 mg
[2018-05-03] MEDS: Loperamide HCl 2 MG CAP PO PRN (18:29)
[2018-05-04] MEDS: Ondansetron ODT 4 MG TAB PO PRN (03:28)
[2018-05-04] MEDS: Levothyroxine Sodium 50 MCG TAB PO SCH (05:45)
[2018-05-04 09:02] LABS: ALT (SGPT) 22 U/L (8-55); AST (SGOT) 43 U/L (5-34); Albumin 2.6 g/dL (3.4-4.8); Alkaline Phosphatase 83 U/L (40-150); Anion Gap 10 mmol/L (10-20); BUN (Urea Nitrogen) 8 mg/dL (9.8-20.1); Bilirubin, Total 1.1 mg/dL (0.2-1.2); Calc. Creatinine Clearance 95 mL/min (70-130); Calcium 7.9 mg/dL (7.8-10.44); Carbon Dioxide 24 mmol/L (23-31); Chloride 98 mmol/L (98-107); Estimated GFR-MDRD Greater than 90; Globulin 1.9 g/dL (2.4-3.5); Glucose 104 mg/dL (83-110); Hemoglobin 7.2 g/dL (12.0-16.0); Mean Corpuscular Hemoglobin 29.7 pg (27.0-31.0); Mean Platelet Volume 7.9 fL (7.4-10.4); Platelet Count 124 thou/uL (130-400); Potassium 3.7 mmol/L (3.5-5.1); Protein, Total 4.5 g/dL (6.0-8.3); RBC Distribution Width 19.9 % (11.5-14.5); Red Blood Cell (RBC) Count 2.41 mill/uL (4.20-5.40); Sodium 128 mmol/L (136-145); White Blood Cell (WBC) Count 0.9 thou/uL (4.8-10.8)
[2018-05-04] MEDS: Famotidine 20 MG TAB PO SCH ×2 (09:15→20:28)
[2018-05-04] MEDS: Lorazepam 0.5 MG TAB PO SCH ×2 (09:15→20:28)
[2018-05-04] MEDS: Losartan 25 MG TAB PO SCH (09:15)
[2018-05-04 10:07] LABS: Anisocytosis SLIGHT = 6-15 cells (100X) (0-5/hpf); Band 6 % (5-11); Hypochromia SLIGHT = 6-15 cells (100X) (0-5/hpf); Lymphocytes 18 % (21-51); MDiff Complete? YES; Neutrophil 76 % (42-75); Platelet Morphology Comment Appears Decreased
--- NOTE | 2018-05-04 11:01 | PDOC.PN ---
- Subjective Encounter Start Date: 05/04/18 Encounter Start Time: 07:50 pt wants to go home, Patient seen and examined. No new complaints. No overnight events - Objective Resuscitation Status - Order Detail: 04/30/18 17:29 Resuscitation Status Routine Resuscitation Status: DNAR: NO Resuscitation Discussed with: patient MAR Reviewed: Yes Vital Signs & Weight: Vital Signs (12 hours) Temp Pulse Resp BP BP Pulse Ox 05/04/18 08:00 97.6 F 91 18 135/61 98 05/04/18 03:34 98.8 F 111 H 20 149/68 H 96 05/04/18 00:15 98.2 F 91 20 126/60 96 Weight Admit Weight 153 lb 9.6 oz Weight 153 lb 9.6 oz I&O: 05/03/18 05/04/18 05/05/18 06:59 06:59 06:59 Intake Total 1480 Balance 1480 Result Diagrams: 05/04/18 08:07 05/04/18 08:07 Phys Exam - Physical Examination Constitutional: NAD HEENT: PERRLA, moist MMs, sclera anicteric Neck: no JVD, supple Respiratory: no wheezing, no rales, no rhonchi Cardiovascular: RRR, no rub SM+ Gastrointestinal: soft, non-tender, no distention, positive bowel sounds Musculoskeletal: no edema, pulses present Neurological: non-focal, normal sensation Lymphatic: no nodes Psychiatric: normal affect Skin: no rash, normal turgor Dx/Plan (1) Acute metabolic encephalopathy Code(s): G93.41 - METABOLIC ENCEPHALOPATHY Status: Acute (2) Anemia Code(s): D64.9 - ANEMIA, UNSPECIFIED Status: Acute (3) Diarrhea Code(s): R19.7 - DIARRHEA, UNSPECIFIED Status: Acute Comment: likely due to chemotherapy, will check C. diff just in case, giving loperamide (4) Pancolitis Code(s): K51.00 - ULCERATIVE (CHRONIC) PANCOLITIS WITHOUT COMPLICATIONS Status : Acute (5) T-cell lymphoma Code(s): C85.90 - NON-HODGKIN LYMPHOMA, UNSPECIFIED, UNSPECIFIED SITE Status: Acute (6) Transfusion reaction Code(s): T80.92XA - UNSPECIFIED TRANSFUSION REACTION, INITIAL ENCOUNTER Status : Acute (7) Hypertension Code(s): I10 - ESSENTIAL (PRIMARY) HYPERTENSION Status: Chronic (8) Hypothyroidism Code(s): E03.9 - HYPOTHYROIDISM, UNSPECIFIED Status: Chronic (9) Pancytopenia Code(s): D61.818 - OTHER PANCYTOPENIA Status: Acute - Plan cont current plan of care, PT/OT, social work therapist * will ask oncology if they have any further plan for this pt regarding treatment options * this pt is high risk for readmission * she has neutropenia, would like to monitor but she insist on going home * medication reviewed as below * symptomatic treatment * will ask case aide to address any discharge needs Review of Systems - Review of Systems ENT: negative: Ear Pain, Ear Discharge, Nose Pain, Nose Discharge, Nose Congestion, Mouth Pain, Mouth Swelling, Throat Pain, Throat Swelling, Other Respiratory: negative: Cough, Dry, Shortness of Breath, Hemoptysis, SOB with Excertion, Pleuritic Pain, Sputum, Wheezing Cardiovascular: negative: chest pain, palpitations, orthopnea, paroxysmal nocturnal dyspnea, edema, light headedness, other Gastrointestinal: negative: Nausea, Vomiting, Abdominal Pain, Diarrhea, Constipation, Melena, Hematochezia, Other Genitourinary: negative: Dysuria, Frequency, Incontinence, Hematuria, Retention , Other Musculoskeletal: negative: Neck Pain, Shoulder Pain, Arm Pain, Back Pain, Hand Pain, Leg Pain, Foot Pain, Other - Medications/Allergies Allergies/Adverse Reactions: Allergies Allergy/AdvReac Type Severity Reaction Status Date / Time latex AdvReac Mild Rash Verified 04/30/18 01:14 povidone-iodine AdvReac Mild Rash Verified 04/30/18 01:14 [From Betadine] soap [From Betadine] AdvReac Mild Rash Verified 04/30/18 01:14 Medications: Current Medications Acetaminophen (Tylenol) 650 mg PO Q4H PRN PRN Reason: Headache/Fever/Mild Pain (1-3) Last Admin: 05/03/18 18:29 Dose: 650 mg Acetaminophen (Tylenol) 650 mg [place] Q4H PRN PRN Reason: Headache/Fever/Mild Pain (1-3) Diphenoxylate HCl/Atropine (Lomotil) 1 tab PO Q6H PRN PRN Reason: Diarrhea/Loose Stools Last Admin: 04/30/18 18:28 Dose: 1 tab Famotidine (Pepcid) 20 mg PO BID [facility] Last Admin: 05/04/18 09:15 Dose: 20 mg Guaifenesin/Dextromethorphan (Robitussin Dm) 15 ml PO Q4H PRN PRN Reason: Cough Levothyroxine Sodium (Synthroid) 50 mcg PO 0600 [facility] Last Admin: 05/04/18 05:45 Dose: 50 mcg Loperamide HCl (Imodium) 2 mg PO PRN PRN PRN Reason: Diarrhea/Loose Stools Last Admin: 05/03/18 18:29 Dose: 2 mg Lorazepam (Ativan) 0.5 mg PO BID [facility] Last Admin: 05/04/18 09:15 Dose: 0.5 mg Losartan Potassium (Cozaar) 25 mg PO DAILY [facility] Last Admin: 05/04/18 09:15 Dose: 25 mg Melatonin (Melatonin) 3 mg PO HS PRN PRN Reason: Insomnia Last Admin: 05/01/18 20:29 Dose: 3 mg Ondansetron HCl (Zofran Odt) 4 mg PO Q6H PRN PRN Reason: Nausea/Vomiting Last Admin: 05/04/18 03:28 Dose: 4 mg Ondansetron HCl (Zofran) 4 mg IVP Q6H PRN PRN Reason: Nausea/Vomiting Promethazine HCl (Phenergan) 25 mg PO Q6H PRN PRN Reason: Nausea/Vomiting Senna/Docusate Sodium (Senokot S) 2 tab PO BID PRN PRN Reason: Constipation Sertraline HCl (Zoloft) 100 mg PO DAILY [facility] Last Admin: 05/04/18 09:15 Dose: 100 mg
[2018-05-04] MEDS: Diphenoxylate HCl/Atropine Tablet PO PRN (13:14)
[2018-05-05] MEDS: Levothyroxine Sodium 50 MCG TAB PO SCH (04:24)
[2018-05-05] MEDS: Famotidine 20 MG TAB PO SCH (08:01)
[2018-05-05] MEDS: Lorazepam 0.5 MG TAB PO SCH (08:01)
[2018-05-05] MEDS: Losartan 25 MG TAB PO SCH (08:02)
[2018-05-05 08:05] VITALS: BP 124/59; TEMP 98.6
--- NOTE | 2018-05-05 09:46 | PDOC.PN ---
- Subjective Encounter Start Date: 05/05/18 Encounter Start Time: 07:00 Patient seen and examined. No new complaints. No overnight events - Objective Resuscitation Status - Order Detail: 04/30/18 17:29 Resuscitation Status Routine Resuscitation Status: DNAR: NO Resuscitation Discussed with: patient YOAN Reviewed: Yes Vital Signs & Weight: Vital Signs (12 hours) Temp Pulse Resp BP BP Pulse Ox 05/05/18 08:00 98.6 F 91 18 124/59 L 126/62 97 Weight Admit Weight 153 lb 9.6 oz Weight 153 lb 9.6 oz I&O: 05/04/18 05/05/18 05/06/18 06:59 06:59 06:59 Intake Total 1480 1999 Balance 1480 1999 Result Diagrams: 05/04/18 08:07 05/04/18 08:07 Phys Exam - Physical Examination Constitutional: NAD HEENT: PERRLA, moist MMs, sclera anicteric Neck: no JVD, supple Respiratory: no wheezing, no rales, no rhonchi Cardiovascular: RRR, no significant murmur, no rub Gastrointestinal: soft, non-tender, no distention, positive bowel sounds Musculoskeletal: no edema, pulses present Neurological: non-focal, normal sensation Lymphatic: no nodes Psychiatric: normal affect Skin: no rash, normal turgor Dx/Plan (1) Acute metabolic encephalopathy Code(s): G93.41 - METABOLIC ENCEPHALOPATHY Status: Acute (2) Anemia Code(s): D64.9 - ANEMIA, UNSPECIFIED Status: Acute (3) Diarrhea Code(s): R19.7 - DIARRHEA, UNSPECIFIED Status: Acute Comment: likely due to chemotherapy, will check C. diff just in case, giving loperamide (4) Pancolitis Code(s): K51.00 - ULCERATIVE (CHRONIC) PANCOLITIS WITHOUT COMPLICATIONS Status : Acute (5) T-cell lymphoma Code(s): C85.90 - NON-HODGKIN LYMPHOMA, UNSPECIFIED, UNSPECIFIED SITE Status: Acute (6) Transfusion reaction Code(s): T80.92XA - UNSPECIFIED TRANSFUSION REACTION, INITIAL ENCOUNTER Status : Acute (7) Hypertension Code(s): I10 - ESSENTIAL (PRIMARY) HYPERTENSION Status: Chronic (8) Hypothyroidism Code(s): E03.9 - HYPOTHYROIDISM, UNSPECIFIED Status: Chronic (9) Pancytopenia Code(s): D61.818 - OTHER PANCYTOPENIA Status: Acute - Plan cont current plan of care * medication reviewed as below * symptomatic treatment * see discharge joya. Review of Systems - Review of Systems Eyes: negative: Pain, Vision Change, Conjunctivae Inflammation, Eyelid Inflammation, Redness, Other ENT: negative: Ear Pain, Ear Discharge, Nose Pain, Nose Discharge, Nose Congestion, Mouth Pain, Mouth Swelling, Throat Pain, Throat Swelling, Other Respiratory: negative: Cough, Dry, Shortness of Breath, Hemoptysis, SOB with Excertion, Pleuritic Pain, Sputum, Wheezing Cardiovascular: negative: chest pain, palpitations, orthopnea, paroxysmal nocturnal dyspnea, edema, light headedness, other Gastrointestinal: negative: Nausea, Vomiting, Abdominal Pain, Diarrhea, Constipation, Melena, Hematochezia, Other Genitourinary: negative: Dysuria, Frequency, Incontinence, Hematuria, Retention , Other Musculoskeletal: negative: Neck Pain, Shoulder Pain, Arm Pain, Back Pain, Hand Pain, Leg Pain, Foot Pain, Other - Medications/Allergies Allergies/Adverse Reactions: Allergies Allergy/AdvReac Type Severity Reaction Status Date / Time latex AdvReac Mild Rash Verified 04/30/18 01:14 povidone-iodine AdvReac Mild Rash Verified 04/30/18 01:14 [From Betadine] soap [From Betadine] AdvReac Mild Rash Verified 04/30/18 01:14 Medications: Current Medications Acetaminophen (Tylenol) 650 mg PO Q4H PRN PRN Reason: Headache/Fever/Mild Pain (1-3) Last Admin: 05/03/18 18:29 Dose: 650 mg Acetaminophen (Tylenol) 650 mg [place] Q4H PRN PRN Reason: Headache/Fever/Mild Pain (1-3) Diphenoxylate HCl/Atropine (Lomotil) 1 tab PO Q6H PRN PRN Reason: Diarrhea/Loose Stools Last Admin: 05/04/18 13:14 Dose: 1 tab Famotidine (Pepcid) 20 mg PO BID [facility] Last Admin: 05/05/18 08:01 Dose: 20 mg Guaifenesin/Dextromethorphan (Robitussin Dm) 15 ml PO Q4H PRN PRN Reason: Cough Levothyroxine Sodium (Synthroid) 50 mcg PO 0600 [facility] Last Admin: 05/05/18 04:24 Dose: 50 mcg Loperamide HCl (Imodium) 2 mg PO PRN PRN PRN Reason: Diarrhea/Loose Stools Last Admin: 05/03/18 18:29 Dose: 2 mg Lorazepam (Ativan) 0.5 mg PO BID [facility] Last Admin: 05/05/18 08:01 Dose: 0.5 mg Losartan Potassium (Cozaar) 25 mg PO DAILY [facility] Last Admin: 05/05/18 08:02 Dose: 25 mg Melatonin (Melatonin) 3 mg PO HS PRN PRN Reason: Insomnia Last Admin: 05/01/18 20:29 Dose: 3 mg Ondansetron HCl (Zofran Odt) 4 mg PO Q6H PRN PRN Reason: Nausea/Vomiting Last Admin: 05/04/18 03:28 Dose: 4 mg Ondansetron HCl (Zofran) 4 mg IVP Q6H PRN PRN Reason: Nausea/Vomiting Promethazine HCl (Phenergan) 25 mg PO Q6H PRN PRN Reason: Nausea/Vomiting Senna/Docusate Sodium (Senokot S) 2 tab PO BID PRN PRN Reason: Constipation Sertraline HCl (Zoloft) 100 mg PO DAILY [facility] Last Admin: 05/05/18 08:02 Dose: 100 mg
[2018-05-05] MEDS: Acetaminophen 325 MG TAB PO PRN (10:28)
--- NOTE | 2018-05-05 10:31 | DIS ---
DATE OF ADMISSION: 04/30/2018 DATE OF DISCHARGE: 05/05/2018 PRIMARY CARE PHYSICIAN: [facility] Call admission. DISCHARGE DISPOSITION: Home with home health. PRIMARY DISCHARGE DIAGNOSES: 1. Acute metabolic encephalopathy, resolved. 2. Neutropenia with pancytopenia. 3. Chemotherapy-induced colitis. 4. Transfusion reaction. SECONDARY DISCHARGE DIAGNOSIS: Hypothyroidism, hypertension, T-cell lymphoma. PRIMARY PROCEDURE/OPERATION: None. RADIOLOGICAL INVESTIGATION: CT chest, abdomen, and pelvis. SIGNIFICANT LABORATORY DATA: WBC 0.9, hemoglobin that was 7.2, platelet 124, sodium 128, potassium 3.7, creatinine 0.58. C diff negative. DISCHARGE MEDICATION: 1. Diazepam 2 mg p.r.n. basis. 2. Synthroid 50 mcg daily. 3. Ativan 0.5 mg p.o. at bedtime. 4. Losartan 25 mg daily. 5. Zoloft 100 mg daily. 6. Vitamin B12 of 1000 mcg p.o. daily. 7. Folic acid 1 mg p.o. daily. 8. Coenzyme Q10 of 100 mg p.o. daily. CONTRAINDICATION: None. CODE STATUS: DNR. INPATIENT ORAL SURGEON: Oncology group. TEST RESULT PENDING ON DISCHARGE: None. ALLERGIES: LATEX, IODINE, SOAP. DISCHARGE PLAN: Posthospital, the patient has appointment with Dr. Payne on May 12, 2018 at 2:45 p.m. HOSPITAL COURSE: A 73-year-old female who was admitted by Dr. Fabio Lucero, please see his H and P for further details. The patient has underlying T-cell lymphoma and she is getting chemotherapy. She was planning to get blood transfusion. Over there, she had transfusion reaction and said that is why she was sent to the hospital for evaluation. The patient was observed while in hospital, she was doing very well. Next day, the patient was given blood transfusion with preparation. She tolerated blood transfusion very well. She developed pancytopenia, which was related with chemotherapy. At this point, Oncology decided that the patient is no longer planned for any further chemotherapy at this point. While in hospital, she had CT chest, abdomen, and pelvis. Oncology cleared her for discharge and the patient will follow up with Oncology in next week. The patient is completely afebrile, hemodynamically stable and she wants to go home. Home health arranged. The patient did not want to go for hospice. The patient is seen and examined at bedside today. Please see my progress note from today for further detail. Job ID: [id number]
== END 2018-05-05 12:43 | disposition home health service (06) | DRG 811 ==
LOC: ONC/OP 12:40 → ONC 19:27 → OBSVTOIN 04-30 15:19
PROVIDERS: ADMIT Emergency Medicine; ATTEND Emergency Medicine
PROC: 30233N1 Transfusion of Nonautologous Red Blood Cells into Peripheral Vein, Percutaneous Approach (ICD-10-PCS; principal; 2018-04-30)
DX: T80.92XA Unspecified transfusion reaction, initial encounter (principal); G93.41 Metabolic encephalopathy; K51.00 Ulcerative (chronic) pancolitis without complications; C85.90 Non-Hodgkin lymphoma, unspecified, unspecified site; D61.818 Other pancytopenia; F44.89 Other dissociative and conversion disorders; I10 Essential (primary) hypertension; E03.9 Hypothyroidism, unspecified; M81.0 Age-related osteoporosis without current pathological fracture; F41.9 Anxiety disorder, unspecified; F32.9 Major depressive disorder, single episode, unspecified; D64.9 Anemia, unspecified; Z66 Do not resuscitate; D70.9 Neutropenia, unspecified
CPT/HCPCS: 36415; 36430; 71260; 74177; 80053; 81003; 82247; 85014; 85018; 85025; 86850; 86860; 86870; 86880; 86900; 86901; 86905; 86922; 86970; 86971; 86972; 86978; 87324; 87449; J1100; J1200; J2930; J7050; P9016; Q0162; Q0163; Q9967

== ENCOUNTER 2018-05-15 11:52 | Day surgery (SDC) | payer MEDICARE ==
[2018-05-15] MEDS ORDERED: diphenhydrAMINE 25 MG CAP PO SCH (13:00)
[2018-05-15] MEDS ORDERED: Acetaminophen 500 MG TAB PO SCH (13:00)
[2018-05-15 13:24] VITALS: BMI 24.8
[2018-05-15 22:02] LABS: Hemoglobin 7.5 g/dL (12.0-16.0); Mean Corpuscular HGB CONC 33.6 g/dL (32.0-36.0); Mean Corpuscular Hemoglobin 29.5 pg (27.0-31.0); Mean Corpuscular Volume 87.6 fL (78.0-98.0); Mean Platelet Volume 9.1 fL (7.4-10.4); Platelet Count 81 thou/uL (130-400); RBC Distribution Width 18.7 % (11.5-14.5); Red Blood Cell (RBC) Count 2.56 mill/uL (4.20-5.40); White Blood Cell (WBC) Count 1.1 thou/uL (4.8-10.8)
[2018-05-15] MEDS ORDERED: Acetaminophen 500 MG TAB PO PRN (23:08)
[2018-05-15] MEDS ORDERED: Lorazepam 1 MG TAB PO PRN (23:08)
[2018-05-16] MEDS ORDERED: Lorazepam 1 MG TAB PO PRN (01:16)
[2018-05-16 12:39] VITALS: BP 134/62; TEMP 98.9
== END 2018-05-16 11:50 | disposition home or self-care (01) ==
LOC: ONC/OP 11:52 → SJJU 12:00 → ONC/OP 05-16 11:50
PROVIDERS: ATTEND Internal Medicine Hematology & Oncology
PROC: 30233N1 Transfusion of Nonautologous Red Blood Cells into Peripheral Vein, Percutaneous Approach (ICD-10-PCS; principal; 2018-05-15)
DX: D64.9 Anemia, unspecified (principal); D69.6 Thrombocytopenia, unspecified; Z66 Do not resuscitate; Z79.899 Other long term (current) drug therapy; Z91.018 Allergy to other foods; Z91.040 Latex allergy status
CPT/HCPCS: 36415; 36430; 85027; 86850; 86900; 86901; 86922; P9016; Q0163